=== PATIENT | female | born 1990 | race Caucasian/White ===

== ENCOUNTER 2019-12-01 12:24 | Emergency (ER) | payer BC ==
[2019-12-01] MEDS ORDERED: Sodium Chloride 0.9% 10 ML Syringe FLUSH PRN (12:32)
[2019-12-01] MEDS ORDERED: Sodium Chloride 0.9% 1,000 ML IV ONE (12:54)
[2019-12-01] MEDS ORDERED: Metoclopramide 10 MG/2 ML SDV IVPUSH ONE (12:54)
--- NOTE | 2019-12-01 13:06 | EDM.PDOC ---
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 Patient states she is 17 weeks , she is a G4, with a miscarriage. The patient's [id number] states that she has been having issues with dizziness on and off, for a little bit now, but yesterday it was quite worse and she went to the [facility], she states that they were given a liter of fluids, and had some laboratory evaluation taken and then she was sent home with a diagnosis of vertigo. Patient states that she felt better last night, had some food and was able to drink something, she woke up this morning around 6 AM and the dizziness was exquisitely worse again. Patient relates this to having her head on a toothpick and everything is spinning around her. She states that it the dizziness is so bad, that she has to keep her eyes closed as when she opens her eyes she feels instant nausea, dizziness, and wants to vomit. She did have quite a hard time getting out of the car, and ambulating with little difficulty. Patient notes that the is going well, except for this dizziness. Patient did have some vomiting today, and dry heaving as well. Patient is unable to stand without assistance. The heart rate is found to be at 150 bpm. Patient denies any fever/chills, cough/shortness of breath, or any other sick-like symptoms. - Related Data Allergies Allergy/AdvReac Type Severity Reaction Status Date / Time No Known Allergies Allergy Verified 12/01/19 12:39 Home Meds: Home Meds Meclizine [Antivert] 12.5 mg PO Q6H PRN #40 tab 12/01/19 [Rx] Metoclopramide [Reglan] 1 mg PO QID PRN #28 cup 12/01/19 [Rx] Vit 75/Iron/Folic/Om3 [One A Day Dha Pack] 1 tab PO DAILY 12/01/19 [History] predniSONE See Taper PO ASDIRECTED #16 tab 12/01/19 [Rx] Past Medical History - Past Surgical History Female Surgical History: Reports: Section, D&C Social & Family History - Tobacco Use Smoking Status *Q: Never Smoker - Caffeine Use Caffeine Use: Reports: Coffee - Recreational Drug Use Recreational Drug Use: No ED ROS GENERAL - Review of Systems Review Of Systems: Comprehensive ROS is negative, except as noted in HPI. ED EXAM, DIZZINESS - Physical Exam Exam: See Below Exam Limited By: No Limitations General Appearance: Alert, WD/WN, Other (pt is laying on her right side, and has eyes closed, states that when she opens them, she has sudden extreme dizziness) Eye Exam: Right Eye: Nystagmus (several tics of rightward nystagmus is noted), Bilateral Eye: EOMI, PERRL Nystagmus: worsens with head to R, reproducible Ears: Normal External Exam, Normal Canal, Hearing Grossly Normal, Normal TMs Nose: Normal Inspection Throat/Mouth: Normal Inspection, Normal Lips, Normal Teeth, Normal Gums, Normal Oropharynx, Normal Voice, No Airway Compromise Head Exam: Atraumatic, Normocephalic Vertigo: worsens with head to R Neck: Normal Inspection, Supple, Non-Tender, Full Range of Motion Respiratory/Chest: No Respiratory Distress, Lungs Clear, Normal Breath Sounds, No Accessory Muscle Use, Chest Non-Tender Cardiovascular: Normal Peripheral Pulses, Regular Rate, Rhythm, No Murmur GI/Abdominal: Normal Bowel Sounds, Soft, Non-Tender, No Distention, No Mass Neurological: Alert, Normal Mood/Affect, Normal Dorsiflexion, Normal Plantar Flexion, Oriented x 3 Extremities: Normal Inspection, Normal Range of Motion, Normal Capillary Refill Psychiatric: Normal Affect, Normal Mood Skin Exam: Warm, Dry, Intact, Normal Color, No Rash Course - Vital Signs Last Recorded V/S: Last Vital Signs Temp 97.0 F 12/01/19 12:34 Pulse 92 12/01/19 12:34 Resp 20 12/01/19 12:34 BP 138/72 12/01/19 12:34 Pulse Ox 98 12/01/19 12:34 - Orders/Labs/Meds Orders: Active Orders 24 hr Category Date Time Status Peripheral IV Care [RC] . DIRECTED Care 12/01/19 12:32 Ordered Consult to Physical Therapy [PT Evaluation and Cons 12/01/19 14:54 Ordered Treatment] [CONS] Routine Sodium Chloride 0.9% [Saline Flush] Med 12/01/19 12:32 Ordered 10 ml FLUSH ASDIRECTED PRN Peripheral IV Insertion Adult [OM.PC] Routine Oth 12/01/19 12:32 Ordered Medication Orders Sodium Chloride (Saline Flush) 10 ml FLUSH ASDIRECTED PRN PRN Reason: Keep Vein Open Last Admin: 12/01/19 13:33 Dose: 10 ml Documented by: MANOHAR Labs: Laboratory Tests 12/01/19 12/01/19 Range/Units 13:26 13:26 WBC 12.17 H (3.98-10.04) K/mm3 RBC 4.76 (3.98-5.22) M/mm3 Hgb 14.7 D (11.2-15.7) gm/dl Hct 42.0 (34.1-44.9) % MCV 88.2 (79.4-94.8) fl MCH 30.9 (25.6-32.2) pg MCHC 35.0 (32.2-35.5) g/dl RDW Std Deviation 41.0 (36.4-46.3) fL Plt Count 202 (182-369) K/mm3 MPV 8.8 L (9.4-12.3) fl Neut % (Auto) 89.9 H (34.0-71.1) % Lymph % (Auto) 7.4 L (19.3-51.7) % [place] % (Auto) 2.4 L (4.7-12.5) % Eos % (Auto) 0 L (0.7-5.8) Baso % (Auto) 0.1 (0.1-1.2) % Neut # (Auto) 10.94 H (1.56-6.13) K/mm3 Lymph # (Auto) 0.90 L (1.18-3.74) K/mm3 [place] # (Auto) 0.29 (0.24-0.36) K/mm3 Eos # (Auto) 0.00 L (0.04-0.36) K/mm3 Baso # (Auto) 0.01 (0.01-0.08) K/mm3 Manual Slide Review Abnormal smear Sodium 136 (136-145) mEq/L Potassium 3.7 (3.5-5.1) mEq/L Chloride 103 (98-107) mEq/L Carbon Dioxide 23 (21-32) mEq/L Anion Gap 13.7 (5-15) BUN 9 (7-18) mg/dL Creatinine 0.7 (0.55-1.02) mg/dL Est Cr Clr Drug Dosing 111.01 mL/min Estimated GFR (MDRD) > 60 (>60) mL/min BUN/Creatinine Ratio 12.9 L (14-18) Glucose 86 (74-106) mg/dL Calcium 9.1 (8.5-10.1) mg/dL Magnesium 1.7 L (1.8-2.4) mg/dl Total Bilirubin 0.3 (0.2-1.0) mg/dL AST 20 (15-37) U/L ALT 30 (14-59) U/L Alkaline Phosphatase 54 (46-116) U/L Total Protein 7.2 (6.4-8.2) g/dl Albumin 3.3 L (3.4-5.0) g/dl Globulin 3.9 gm/dL Albumin/Globulin Ratio 0.9 L (1-2) Meds: Medications Generic Name Dose Route Start Last Admin Trade Name Freq PRN Reason Stop Dose Admin Sodium Chloride 10 ml 12/01/19 12:32 12/01/19 13:33 Saline Flush FLUSH 10 ml ASDIRECTED PRN Administration Keep Vein Open Discontinued Medications Generic Name Dose Route Start Last Admin Trade Name Freq PRN Reason Stop Dose Admin Sodium Chloride 1,000 mls @ 999 mls/hr 12/01/19 12:54 12/01/19 13:32 Normal Saline IV 12/01/19 13:54 999 mls/hr ONETIME ONE Administration Meclizine HCl 25 mg 12/01/19 12:55 12/01/19 14:33 Antivert PO 12/01/19 12:56 25 mg ONETIME ONE Administration Metoclopramide HCl 10 mg 12/01/19 12:54 12/01/19 13:32 Reglan IVPUSH 12/01/19 12:55 10 mg ONETIME ONE Administration Prednisone 60 mg 12/01/19 15:47 12/01/19 16:02 Prednisone PO 12/01/19 15:48 60 mg ONETIME ONE Administration - Re-Assessments/Exams Free Text/Narrative Re-Assessment/Exam: 12/01/19 13:08 Patient presents to the ED for the evaluation of her extreme dizziness/vertigo. Patient will have IV be placed, some fluids be given along with 10mg of Reglan, 25 mg of meclizine. I did talk with radiology regarding head imaging, and they would be able to provide her with a brain MRI and MRA without contrast with Dr. Munoz's permission today. I do believe this would be beneficial, and ruling out any abnormality. Have ordered these, and basic labs for management. 12/01/19 14:51 The patient's MRI and MRA of her brain without contrast have been done, and demonstrates no acute abnormalities. Patient was reassessed at bedside, and states she is still quite dizzy, she tried sitting up in the bed, and still states that her head feels like it is on a toothpick. Will try to call PT to see if they can come and evaluate for treatment. Departure - Departure Time of Disposition: 15:53 Disposition: Home, Self-Care 01 Condition: Good Clinical Impression: Acute vestibular neuritis Qualifiers: Laterality: left Qualified Code(s): H81.22 - Vestibular neuronitis, left ear - Discharge Information *PRESCRIPTION DRUG MONITORING PROGRAM REVIEWED*: No *COPY OF PRESCRIPTION DRUG MONITORING REPORT IN PATIENT PAOLA: No Prescriptions: Meclizine [Antivert] 12.5 mg PO Q6H PRN #40 tab PRN Reason: Dizziness predniSONE See Taper PO ASDIRECTED #16 tab Metoclopramide [Reglan] 1 mg PO QID PRN #28 cup PRN Reason: Nausea Instructions: Dizziness, [id number] Referrals: Mando Arenas MD [Primary Care Provider] - Forms: ED Department Discharge, ED Return to Work/School Form Additional Instructions: You were evaluated in the ER today regarding your ongoing dizziness. You were given some fluids, IV medications, had MRI and MRA done of your brain, and did have some labs taken as well. All of the studies were within normal limits. In the IV fluids and IV medications seem to help your symptoms a little bit. Physical therapy was in to evaluate you, and diagnosed you with vestibular neuritis, which is an inflammation of the inner ear canals. This can take up to 2 to 4 weeks to get better. Treatment of this however is a steroid taper. I did consult with your DIRECTOR OF ARCHITECTURE provider, Dr. Arenas, and he does agree that the benefits outweigh the risks at this point in your . You have been provided with a prescription for prednisone, Day 1 (first 60 mg dose) was given in the ER. Please follow this tapering dose. Days 1-5: 60mg Day 6: 40mg Day 7: 30mg Day 8: 20mg Day 9: 10mg You have also been provided with a prescription for meclizine, please take 12.5 mg to 25 mg every 6 hours as needed for further vertigo/dizziness symptoms. You were given a prescription for your nausea as well , this is Reglan please take 10mg, 1 cup QID PRN for nausea. It is highly recommended to keep yourself well-hydrated, try to go home and rest in a dark quiet room without a lot of stimuli, this should get better soon. Dr. Arenas would like you to check in with him, by the end of the week or on Friday to see how you are feeling, and keep your previous appointment as already scheduled. It is recommended that while you are experiencing this extreme dizziness, you try not to drive, or take long car rides. You will be released from work for a week as well, to help try to make the symptoms better. If symptoms do not seem to be getting better after 2 to 4 weeks, you may want to seek out audiology for further testing and evaluation. Please return to the ER at any time if your symptoms change or worsen. Sepsis Event Note (ED) - Evaluation Sepsis Screening Result: No Definite Risk - Focused Exam Vital Signs: Vital Signs Temp Pulse Resp BP Pulse Ox 12/01/19 12:34 97.0 F 92 20 138/72 98 - My Orders Last 24 Hours: My Active Orders 12/01/19 12:32 Peripheral IV Care [RC] . DIRECTED Sodium Chloride 0.9% [Saline Flush] 10 ml FLUSH ASDIRECTED PRN Peripheral IV Insertion Adult [OM.PC] Routine 12/01/19 14:54 Consult to Physical Therapy [PT Evaluation and Treatment] [CONS] Routine - Assessment/Plan Last 24 Hours: My Active Orders 12/01/19 12:32 Peripheral IV Care [RC] . DIRECTED Sodium Chloride 0.9% [Saline Flush] 10 ml FLUSH ASDIRECTED PRN Peripheral IV Insertion Adult [OM.PC] Routine 12/01/19 14:54 Consult to Physical Therapy [PT Evaluation and Treatment] [CONS] Routine
--- NOTE | 2019-12-01 14:39 | MR ---
MRI brain Technique: T1 sagittal; T2, T2 FLAIR, T1 and diffusion axial; T1 and T2 gradient echo coronal; thin T2 gradient echo axial images through the internal auditory canals were obtained. Findings: Ventricles along with basal cisterns and sulci over the convexities appear within normal limits for the patient's age. Normal signal void is seen within the major cerebral arteries within skull base. No abnormal signal is seen within the brain parenchyma. No midline shift or mass-effect is seen. Visualized paranasal sinuses and mastoid sinuses show nothing acute. No acute diffusion abnormalities are seen. Contents of the internal auditory canals appear unremarkable. No cerebellopontine angle cistern mass is seen. Impression: 1. No abnormality is appreciated on MRI study of the brain. Diagnostic code #1 This report was dictated in MDT
--- NOTE | 2019-12-01 14:39 | MR ---
MR angiogram of brain Technique: [id number] MR angiogram study was obtained centered to the [place]. Multiple MIP images were obtained. Findings: Distal internal carotid arteries as well as distal vertebral arteries are patent. Basilar artery appears to be patent. Posterior cerebral arteries are patent. Both middle and anterior cerebral arteries are patent. No focal stenosis or occlusion is seen. No discrete aneurysm is appreciated. Impression: 1. No abnormality is appreciated on MR angiogram study of the brain which is centered to the [place]. Diagnostic code #1 This report was dictated in MDT
[2019-12-01] MEDS ORDERED: predniSONE 20 MG Tab PO ONE (15:47)
== END 2019-12-01 16:40 | disposition home or self-care (01) ==
LOC: JD.ED 12:24
DX: O99.89 Other specified diseases and conditions complicating pregnancy, childbirth and the puerperium (principal); H81.22 Vestibular neuronitis, left ear; Z3A.17 17 weeks gestation of pregnancy
CPT/HCPCS: 36415; 70544; 70551; 80053; 83735; 85025; 96361; 96374; 99284; A9270; J2765; J7030; J7512; 99283

== ENCOUNTER 2020-04-20 05:34 | Inpatient (IN) | payer BC ==
--- NOTE | 2020-04-18 13:34 | PCM.LDHP ---
L&D History of Present Illness - General Date of Service: 04/17/20 Admit Problem/Dx: Admission Diagnosis/Problem Admission Diagnosis/Problem section Source of Information: Patient History Limitations: Reports: No Limitations - History of Present Illness Introduction:: Mell Serrano is a 29-year-old -0-1-2 female at 36 weeks 4 days (YOSEF 05/11/2020) at her appointment on 04/17/2020 who will be 37 weeks 0 days on day of surgery on 04/20/2020. While she was seen in the clinic on 04/17/2020 she was noted to have mild range blood pressures that have persisted from a previous appointment several weeks prior. She had lab work done that showed that this is most likely due to gestational hypertension. She was not having any symptoms or signs of severe features of preeclampsia. She denied any headaches, vision changes or epigastric pain. Her was otherwise going well. She was feeling infant move without difficulty. She denied any significant contractions or cramping. Denied any leaking of fluid or vaginal bleeding. Patient recommended for her to undergo repeat section due to suspected gestational hypertension. Associated Symptoms: Denies: vaginal bleeding, vaginal discharge, vaginal fluid Present Illness Comments:: Mell Serrano is a 29-year-old -0-1-2 female at 36 weeks 4 days (YOSEF 05/11/2020) at her appointment on 04/17/2020 who will be 37 weeks 0 days on day of surgery on 04/20/2020. She has had routine care with Dr. Arenas and myself, Dr. Huffman, starting at 11 weeks gestational age. She had a normal anatomy ultrasound done at 19 weeks gestational age. She received influenza vaccine on 03/16/2020 and Tdap on 02/23/2020. She had an elevated 1 hour glucose tolerance test with a normal 3-hour glucose tolerance test. She did have mild range blood pressure at her visit on 03/27/2020 when she was 33 weeks 4 days with a blood pressure of 130/90 and then a repeat mild range blood pressure at her visit on 04/17/2020 with a blood pressure of 148/90. Her blood work and other labs were within normal limits. is complicated by: * History of section x2 and desires repeat section * Gestational hypertension diagnosed at her visit on 04/17/2020 with persistent elevation of mild range blood pressure and no severe features of preeclampsia. No abnormalities on blood work or urine testing * Elevated 1 hour glucose tolerance test with a value of 132 and normal 3-hour glucose tolerance test. FISCAL SPECIALIST history: G1: SAB at early gestational age uncertain date G2: 06/05/2010, section for nonreassuring heart tones, 39 weeks gestational age, 6 pounds 7 ounces, male , epidural, no other compli cations G3: 05/03/2013, repeat section for history of section, 39 weeks gestational age, 7 pounds 10 ounces, female , spinal, no other complications labs Blood type: A+ Antibody screen: Negative First trimester hematocrit/hemoglobin: 39.2%/13.1 on 10/25/2019 Platelets: 221 on 10/25/2019 Pap smear: Negative on 10/25/2019 Urine culture: Mixed javad suggestive of contamination Rubella status: Immune Hepatitis B surface antigen: Negative RPR: Negative HIV: Negative Gonorrhea: Negative Chlamydia: Negative Anatomy ultrasound: Normal anatomy ultrasound, posterior placenta, no previa, 17th percentile One hour glucose tolerance test: 132 Second trimester hematocrit/hemoglobin: 36.4%/12.2 on 02/23/2020 Platelets: 193 on 02/23/2020 3-hour glucose tolerance test: Fasting 80, 1 hour 133, 2-hour 80, 3-hour 89 GBS status: Positive on 04/17/2020 - Related Data Allergies/Adverse Reactions: Allergies Allergy/AdvReac Type Severity Reaction Status Date / Time No Known Allergies Allergy Verified 04/18/20 10:53 Home Medications: Home Meds Vit 75/Iron/Folic/Om3 [One A Day Dha Pack] 1 tab PO DAILY 12/01/19 [History] Past Medical History Genitourinary History: Reports: Renal Calculus (history of) FISCAL SPECIALIST History: Reports: , Spontaneous : 4 Para: 2 Other OB/BYN History: 1 SAB, 2 C/S- 2009,2012 - Past Surgical History Female Surgical History: Reports: Section (x2), D&C Social & Family History - Family History Family Medical History: Noncontributory - Tobacco Use Tobacco Use Status *Q: Never Tobacco User Second Hand Smoke Exposure: No - Tobacco Core Measures Tobacco Use/Smoking Within Last 30 Days: No Smokeless Tobacco Use in Last 30 Days: No - Caffeine Use Caffeine Use: Reports: None - Recreational Drug Use Recreational Drug Use: No - Living Situation & Occupation Living situation: Reports: , with Spouse, with Family Occupation: Employed H&P Review of Systems - Review of Systems: Review Of Systems: See Below General: Denies: Fever, Chills, Malaise, Weakness, Fatigue HEENT: Denies: Headaches, Rhinitis, Post Nasal Drip, Sinus Congestion, Sore Throat, Visual Changes Pulmonary: Denies: Shortness of Breath, Wheezing, Pleuritic Chest Pain, Cough Cardiovascular: Denies: Chest Pain, Palpitations, Dyspnea on Exertion, Orthopnea Gastrointestinal: Reports: Constipation (mild). Denies: Abdominal Pain, Diarrhea, Nausea, Vomiting Genitourinary: Denies: Dysuria, Frequency, Burning, Pain, Urgency Musculoskeletal: Reports: Back Pain (and hip pain of ) Skin: Denies: Rash, Lesions Psychiatric: Denies: Depression, Anxiety L&D Exam - Exam Exam: See Below - Vital Signs Vital Signs: BP: 148/90 Weight: 94.347 kg - OB Specific Fundal Height In cm: 37 Movement: Active Heart Tones: Present Heart Tones per Min: 132 - Garnica Score Garnica Score Cervix Position: Posterior Garnica Score Consistency: Medium Garnica Score Effacement: 0-30% (30%) Garnica Score Dilation: Closed Garnica Score Infant's Station: -3 (-4) Garnica Score Total: 1 - Exam General: Alert, Oriented HEENT: Conjunctiva Clear, EOMI Neck: Supple, Trachea Midline Lungs: Clear to Auscultation, Normal Respiratory Effort Cardiovascular: Regular Rate, Regular Rhythm GI/Abdominal Exam: Soft, Non-Tender, No Distention, Other (Gravid). No: Guarding, Rigid, Rebound Genitourinary: Normal external exam Extremities: Normal Inspection, Pedal Edema (+1 in bilateral lower extremities to midshins) Skin: Warm, Dry, Intact Psychiatric: Normal Affect, Normal Mood - Problem List (1) 37 weeks gestation of SNOMED Code(s): 14959895 ICD Code: Z3A.37 - 37 WEEKS GESTATION OF Status: Acute (2) Gestational hypertension SNOMED Code(s): 561563773 ICD Code: O13.9 - GESTATIONAL HTN W/O SIGNIFICANT PROTEINURIA, UNSP TRIMESTER Status: Acute (3) History of delivery affecting SNOMED Code(s): 989384551, 144060978 ICD Code: O34.219 - MATERNAL CARE FOR UNSP TYPE SCAR FROM PREVIOUS DEL Status: Acute (4) History of delivery SNOMED Code(s): 826668513 ICD Code: Z98.891 - HISTORY OF UTERINE SCAR FROM PREVIOUS SURGERY Status: Acute Problem List Initiated/Reviewed/Updated: Yes Assessment/Plan Comment:: Mell Serrano (Liz) is a 29-year-old -0-1-2 who will be 37 weeks 0 days (YOSEF 05/11/2020) on day of surgery on 04/20/2020 who presents for repeat section in the setting of gestational hypertension with complicated by history of section, gestational hypertension and elevated 1 hour glucose tolerance test with normal 3-hour glucose tolerance test Admit to inpatient after section NST prior to section Place IV and have Lactated Ringer's at 125 ml/hr SCDs for DVT prophylaxis Nothing by mouth Activity as tolerated Plan for spinal injection for anesthesia COVID-19 swab, CBC, RPR and type and screen prior to surgery Plans to breast-feed after delivery Plan for Ancef 2 g IV for antibiotic prophylaxis prior to surgery Benny Huffman M.D. 1:53 PM 04/18/2020
[2020-04-20] MEDS ORDERED: ceFAZolin 2 GM in Premix Bag 1 BAG IV ONE (06:00)
[2020-04-20] MEDS ORDERED: Metoclopramide 10 MG/2 ML SDV IVPUSH ONE (06:00)
[2020-04-20] MEDS ORDERED: Citric Acid/Sodium Citrate Solution 30 ML Cup PO ONE (06:00)
[2020-04-20] MEDS ORDERED: Sodium Chloride 0.9% 10 ML Syringe FLUSH PRN (06:00)
[2020-04-20] MEDS ORDERED: Lactated Ringers 1,000 ML IV SCH (06:00)
[2020-04-20] MEDS ORDERED: Oxytocin/Lactated Ringers 10 UNIT/1,000 ML BAG IV SCH ×2 (06:00→10:22)
[2020-04-20] MEDS ORDERED: Bupivacaine 0.5% 30 ML SDV ONE (06:39)
[2020-04-20] MEDS ORDERED: Phenylephrine 1% 10 MG/ML SDV ONE (06:44)
[2020-04-20] MEDS ORDERED: ceFAZolin 1 GM Vial ONE (06:44)
[2020-04-20] MEDS ORDERED: Oxytocin 10 Units/1 ML SDV ONE ×2 (06:44→07:54)
[2020-04-20] MEDS ORDERED: Ketorolac 30 MG/ML SDV ONE (06:44)
[2020-04-20] MEDS ORDERED: Morphine PF 10 MG/10 ML SDV ONE (06:44)
[2020-04-20] MEDS ORDERED: Lactated Ringers 1,000 ML ONE (06:49)
[2020-04-20] MEDS ORDERED: Metoclopramide 10 MG/2 ML SDV ONE (06:49)
[2020-04-20] MEDS ORDERED: Citric Acid/Sodium Citrate Solution 30 ML Cup ONE (06:50)
--- NOTE | 2020-04-20 08:22 | PCM.PREANE ---
Preanesthetic Assessment - Procedure Proposed Procedure: C section - Anesthesia/Transfusion/Family Hx Anesthesia History: Prior Anesthesia Without Reaction Family History of Anesthesia Reaction: No Transfusion History: No Prior Transfusion(s) - Review of Systems General: No Symptoms Pulmonary: No Symptoms Cardiovascular: No Symptoms Gastrointestinal: No Symptoms Neurological: No Symptoms Other: Reports: None - Physical Assessment NPO Status Date: 04/19/20 NPO Status Time: 00:00 Vital Signs: Last Vital Signs Temp 36.9 C 04/20/20 05:55 Pulse 93 04/20/20 05:55 Resp 14 04/20/20 05:55 BP 134/84 04/20/20 05:55 Pulse Ox 100 04/20/20 05:55 Height: 1.68 m Weight: 93.077 kg ASA Class: 2 Mental Status: Alert & Oriented x3 Airway Class: Mallampati = 1 Dentition: Reports: Normal Dentition Thyro-Mental Finger Breadths: 3 Mouth Opening Finger Breadths: 3 ROM/Head Extension: Full Lungs: Clear to Auscultation, Normal Respiratory Effort Cardiovascular: Regular Rate, Regular Rhythm - Lab Values: Laboratory Last Values WBC 11.22 K/mm3 (3.98-10.04) H 04/20/20 05:43 RBC 4.45 M/mm3 (3.98-5.22) 04/20/20 05:43 Hgb 13.8 gm/dl (11.2-15.7) 04/20/20 05:43 Hct 41.1 % (34.1-44.9) 04/20/20 05:43 MCV 92.4 fl (79.4-94.8) 04/20/20 05:43 MCH 31.0 pg (25.6-32.2) 04/20/20 05:43 MCHC 33.6 g/dl (32.2-35.5) 04/20/20 05:43 RDW Std Deviation 41.9 fL (36.4-46.3) 04/20/20 05:43 Plt Count 195 K/mm3 (182-369) 04/20/20 05:43 MPV 9.3 fl (9.4-12.3) L 04/20/20 05:43 Neut % (Auto) 75.6 % (34.0-71.1) H 04/20/20 05:43 Lymph % (Auto) 17.2 % (19.3-51.7) L 04/20/20 05:43 [place] % (Auto) 5.7 % (4.7-12.5) 04/20/20 05:43 Eos % (Auto) 0.7 (0.7-5.8) 04/20/20 05:43 Baso % (Auto) 0.1 % (0.1-1.2) 04/20/20 05:43 Neut # (Auto) 8.48 K/mm3 (1.56-6.13) H 04/20/20 05:43 Lymph # (Auto) 1.93 K/mm3 (1.18-3.74) 04/20/20 05:43 [place] # (Auto) 0.64 K/mm3 (0.24-0.36) H 04/20/20 05:43 Eos # (Auto) 0.08 K/mm3 (0.04-0.36) 04/20/20 05:43 Baso # (Auto) 0.01 K/mm3 (0.01-0.08) 04/20/20 05:43 SARS-CoV-2 RNA (CHRISTY) Negative (NEGATIVE) 04/20/20 05:50 Blood Type A POSITIVE 04/20/20 05:43 Gel Antibody Screen Negative 04/20/20 05:43 - Allergies Allergies/Adverse Reactions: Allergies Allergy/AdvReac Type Severity Reaction Status Date / Time No Known Allergies Allergy Verified 04/20/20 06:26 - Anesthesia Plan Pre-Op Medication Ordered: None - Acknowledgements Anesthesia Type Planned: Spinal Pt an Appropriate Candidate for the Planned Anesthesia: Yes Alternatives and Risks of Anesthesia Discussed w Pt/Guardian: Yes Pt/Guardian Understands and Agrees with Anesthesia Plan: Yes PreAnesthesia Questionnaire Gastrointestinal History: Reports: GERD Genitourinary History: Reports: Renal Calculus 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: , 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 Other OB/BYN History: 1 SAB, 2 C/S- - Past Surgical History Female Surgical History: Reports: Section, D&C - SUBSTANCE USE Tobacco Use Status *Q: Never Tobacco User Tobacco Use Within Last Twelve Months: No Second Hand Smoke Exposure: No Recreational Drug Use History: No - HOME MEDS Home Medications: Home Meds Vit 75/Iron/Folic/Om3 [One A Day Dha Pack] 1 tab PO DAILY 12/01/19 [History] - CURRENT (IN HOUSE) MEDS Current Meds: Current Medications Lactated Ringer's (Ringers, Lactated) 1,000 mls @ 125 mls/hr IV ASDIRECTED [facility] Last Admin: 04/20/20 06:08 Dose: 125 mls/hr Documented by: Oxytocin/Lactated Ringer's (Pitocin In Lr 10 Units/1,000 Ml) 10 unit in 1,000 mls @ 100 mls/hr IV ASDIRECTED [facility] Sodium Chloride (Saline Flush) 10 ml FLUSH ASDIRECTED PRN PRN Reason: Keep Vein Open Discontinued Medications Bupivacaine HCl (Marcaine 0.5%) Confirm Administered Dose 30 ml .ROUTE .STK-MED ONE Stop: 04/20/20 06:40 Cefazolin Sodium (Ancef) Confirm Administered Dose 2 gm .ROUTE .STK-MED ONE Stop: 04/20/20 06:45 Citric Acid/Sodium Citrate (Bicitra Solution) 30 ml PO ONETIME ONE Stop: 04/20/20 06:01 Last Admin: 04/20/20 06:52 Dose: 30 ml Documented by: Citric Acid/Sodium Citrate (Bicitra Solution) Confirm Administered Dose 30 ml .ROUTE .STK-MED ONE Stop: 04/20/20 06:51 Cefazolin Sodium/Dextrose 2 gm (/ Premix) 50 mls @ 100 mls/hr IV ONETIME ONE Stop: 04/20/20 06:29 Lactated Ringer's (Ringers, Lactated) Confirm Administered Dose 1,000 mls @ as directed .ROUTE .STK-MED ONE Stop: 04/20/20 06:50 Ketorolac Tromethamine (Toradol) Confirm Administered Dose 30 mg .ROUTE .STK-MED ONE Stop: 04/20/20 06:45 Metoclopramide HCl (Reglan) 10 mg IVPUSH ONETIME ONE Stop: 04/20/20 06:01 Last Admin: 04/20/20 06:52 Dose: 10 mg Documented by: Metoclopramide HCl (Reglan) Confirm Administered Dose 10 mg .ROUTE .STK-MED ONE Stop: 04/20/20 06:50 Morphine Sulfate (Duramorph Pf) Confirm Administered Dose 10 mg .ROUTE .STK-MED ONE Stop: 04/20/20 06:45 Oxytocin (Pitocin) Confirm Administered Dose 10 unit .ROUTE .[facility]K-MED ONE Stop: 04/20/20 06:45 Oxytocin (Pitocin) [facility] Stop: 04/20/20 07:55 Phenylephrine HCl (Sushil-Synephrine) Confirm Administered Dose 10 mg .ROUTE .[facility] ONE Stop: 04/20/20 06:45
--- NOTE | 2020-04-20 08:23 | PCM.POSTAN ---
POST ANESTHESIA ASSESSMENT - MENTAL STATUS Mental Status: Alert, Oriented - VITAL SIGNS Vital Signs: Last Vital Signs Temp 36.9 C 04/20/20 05:55 Pulse 93 04/20/20 05:55 Resp 14 04/20/20 05:55 BP 134/84 04/20/20 05:55 Pulse Ox 100 04/20/20 05:55 - RESPIRATORY Respiratory Status: Respiratory Rate WNL, Airway Patent, O2 Saturation Stable - CARDIOVASCULAR CV Status: Pulse Rate WNL, Blood Pressure Stable - GASTROINTESTINAL GI Status: No Symptoms - PAIN Pain Score: 0 - POST OP HYDRATION Hydration Status: Adequate & Stable - OBSERVATIONS Free Text/Narrative:: no anesthesia complications noted
--- NOTE | 2020-04-20 08:48 | PCM.OPNOTE ---
- General Post-Op/Procedure Note Date of Surgery/Procedure: 04/20/20 Operative Procedure(s): Repeat section Findings: Live male delivered in vertex presentation on 04/20/2020 at 07:32. Apgars of 8 and 9. weight 2610 g (5 pounds 12.1 ounces). Grossly normal- appearing uterus, bilateral fallopian tubes and ovaries. Pre Op Diagnosis: 37 weeks gestational age and gestational hypertension with history of section x2 Post-Op Diagnosis: Same Anesthesia Technique: Spinal Primary Surgeon: Benny Huffman Anesthesia Provider: Joseph Colmenares Drop Tester: Satish Kramer Drop Tester: Frida Clark (PA student) Reason Drop Tester Was Necessary: Patient safety and reduction of morbidity and mortality Role of Drop Tester: Retraction for visualization Pathology: None Fluid Replacement, Intraop: 2,300 Output, Urine Amount: 225 EBL in mLs: 800 Complications: None Condition: Good Free Text/Narrative:: Procedure in Detail: The patient was seen in room #6 and the risks, benefits and complications were discussed with the patient. The patient desired to proceed with section and appropriate consents were reviewed. The patient was taken to operating room #1. A Time Out was held and the patient was identified using 2 identifiers and the procedure was confirmed. The patient was given spinal anesthesia and was placed in dorsal supine position with leftward tilt. She was given 2 g Ancef for antibiotic prophylaxis. A Dietrich catheter was inserted without difficulty. The patient was prepped and draped in the usual sterile manner. The abdominal skin was tested and the spinal anesthesia was found to be adequate. The skin was injected with 0.5% m arcaine for local anesthesia. A Pfannenstiel skin incision was made and carried down through the subcutaneous tissue to the fascia with the scapel. The fascia was nicked in the midline using a scalpel and the fascial incision was extended transversely with Richardson scissors. The inferior aspect of the fascia was grasped with Kenton clamps and tented upwards. The fascia was from the under lying rectus muscle bluntly and sharply with Richardson scissors. Attention was then turned to the superior aspect of the fascia and was grasped using Kenton clamps and tented upwards. The underlying rectus muscle was dissected off bluntly and sharply with Richardson scissors. The peritoneum was identified and entered bluntly. The utero-vesical peritoneal reflection was identified and the peritoneum was i ncised with [place]um scissors and transversely extended. The bladder blade was inserted and the lower uterine segment was identified. A low transverse uterine incision was made sharply with a scalpel and extended laterally bluntly. The infant's head was brought to the uterine incision, the bladder blade was removed and the was delivered atraumatically. On 04/20/2020 a live male infant was delivered in vertex position at 07:32, wt of 2610 grams, 5 pounds and 12.1 ounces. APGARS were 8 & 9. The nose and mouth were suctioned with bulb suction. The cord was doubly clamped and cut by the father the over the top of the abdominal drape. The was transferred to the awaiting nurse. The placenta was removed intact and appeared normal with a three vessel cord. The uterus was exteriorized and the uterine cavity was cleaned using lap sponges. The hysterotomy was closed with a running locked suture of 0-Vicryl. A second suture of 0-Vicryl was used to imbricate the hysterotomy. The hysterotomy was hemostatic. There was an area of bleeding above the hysterotomy that was attempted to be made hemostatic with Bovie cautery but this was unsuccessful. A fhpaob-[id number]-tzxze suture using 0 Vicryl suture was placed and there continues to be a small amount of bleeding. A second wjkser-wy-yigxr suture was placed and the area was hemostatic. The uterus, tubes and ovaries appeared overall normal. The uterus was then returned into the abdominal cavity. The hysterotomy was noted to remain hemostatic inside the abdominal cavity. The fascia was noted to be hemostatic and the fascia was then reapproximated with running sutures of 0-Vicryl. The skin was reapproximated using 4-0 Monocryl and Steri-strips were applied over the incision. Instrument, sponge, and needle counts were correct prior to the abdominal closure and at the conclusion of the case. Benny Huffman MD 8:45 AM 04/20/2020
[2020-04-20] MEDS ORDERED: Magnesium Hydroxide 400 MG/5 ML Susp 30 ML Cup PO PRN (10:22)
[2020-04-20] MEDS ORDERED: Acetaminophen/oxyCODONE 325-5 MG Tab PO PRN (10:22)
[2020-04-20] MEDS ORDERED: ePHEDrine 50 MG/ML SDV IVPUSH PRN (10:22)
[2020-04-20] MEDS ORDERED: Dextrose 5%-Lactated Ringers 1,000 ML IV SCH (10:22)
[2020-04-20] MEDS ORDERED: Naloxone 0.4 MG/ML SDV IVPUSH PRN (10:22)
[2020-04-20] MEDS ORDERED: diphenhydrAMINE 50 MG/ML SDV IVPUSH PRN (10:22)
[2020-04-20] MEDS: Docusate Sodium 100 MG Cap PO SCH ×2 (11:08→21:19)
[2020-04-20] MEDS: Prenatal Multivitamin with Calcium/Folic Acid/Iron Tab PO SCH (11:08)
[2020-04-20] MEDS: Ketorolac 30 MG/ML SDV IVPUSH SCH ×2 (14:53→21:13)
[2020-04-21] MEDS: Ketorolac 30 MG/ML SDV IVPUSH SCH (02:11)
[2020-04-21] MEDS: Acetaminophen/oxyCODONE 325-5 MG Tab PO PRN ×2 (04:14→10:07)
[2020-04-21] MEDS: Ibuprofen 600 MG Tab PO PRN ×3 (07:42→20:19)
[2020-04-21] MEDS: Docusate Sodium 100 MG Cap PO SCH ×2 (08:58→20:20)
[2020-04-21] MEDS: Prenatal Multivitamin with Calcium/Folic Acid/Iron Tab PO SCH (08:58)
--- NOTE | 2020-04-21 10:00 | PCM48HPAN ---
Post Anesthesia Note - EVALUATION WITHIN 48HRS OF ANESTHETIC Vital Signs in Normal Range: Yes Patient Participated in Evaluation: Yes Respiratory Function Stable: Yes Airway Patent: Yes Cardiovascular Function Stable: Yes Hydration Status Stable: Yes Pain Control Satisfactory: Yes Nausea and Vomiting Control Satisfactory: Yes Mental Status Recovered: Yes Vital Signs: Last Vital Signs Temp 36.9 C 04/21/20 08:56 Pulse 80 04/21/20 08:56 Resp 16 04/21/20 08:56 BP 118/74 04/21/20 08:56 Pulse Ox 97 04/21/20 08:56 - COMMENTS/OBSERVATIONS Free Text/Narrative:: no anesthesia complications noted
--- NOTE | 2020-04-21 15:28 | PCM.SN.2 ---
- Free Text/Narrative Note: Post Operative Progress Note POD #1 Subjective: Doing well overall. Ambulating slowly without difficulty but is having increased amounts of pain when she tries to stand up clearly. She reports that she tries to hunch over a little bit to protect her abdominal pain from getting worse. She reports that it has been getting better since yesterday. Lochia minimal. Urinating without difficulty. Passing flatus but has not had a bowel movement. Tolerating regular diet without nausea or vomiting. Pain controlled with oral medications but she is trying to avoid taking narcotic pain medications due to some of the side effects they can cause for her including a foggy, lightheaded feeling. Breast-feeding with minimal difficulty. Objective: Vitals: Vital Signs - 24 hr 04/20/20 04/20/20 04/20/20 15:42 15:43 18:00 Temperature 37.2 C Pulse, 81 84 Peripheral Respiratory 14 15 Rate Blood Pressure 123/82 O2 Sat by Pulse 99 98 98 Oximetry 04/20/20 21:06 Temperature 36.6 C Pulse, 91 Peripheral Respiratory 16 Rate Blood Pressure 118/64 O2 Sat by Pulse 97 Oximetry 04/20/20 23:35 Temperature 36.7 C Pulse, 92 Peripheral Respiratory 16 Rate Blood Pressure 117/73 O2 Sat by Pulse 97 Oximetry 04/21/20 08:56 Temperature 36.9 C Pulse, 80 Peripheral Respiratory 16 Rate Blood Pressure 118/74 O2 Sat by Pulse 97 Oximetry 04/21/20 14:48 Temperature 36.7 C Pulse, 82 Peripheral Respiratory 16 Rate Blood Pressure 122/72 O2 Sat by Pulse 97 Oximetry Physical Exam General: Alert and oriented, no acute distress Lungs: Clear to auscultation bilaterally Heart: Regular rate and rhythm Abdomen: Soft, minimal appropriate tenderness, non-distended, fundus midline, nontender and at the umbilicus Incision: Clean, dry and intact, no erythema, bleeding or drainage with Steri- Strips in place Extremities: Trace edema in bilateral lower extremities to mid shins Labs: Laboratory Results - last 24 hr 04/20/20 04/21/20 Range/Units 05:43 06:05 WBC 11.15 H (3.98-10.04) K/mm3 RBC 3.91 L (3.98-5.22) M/mm3 Hgb 11.9 (11.2-15.7) gm/dl Hct 36.1 (34.1-44.9) % MCV 92.3 (79.4-94.8) fl MCH 30.4 (25.6-32.2) pg MCHC 33.0 (32.2-35.5) g/dl RDW Std Deviation 41.6 (36.4-46.3) fL Plt Count 168 L (182-369) K/mm3 MPV 9.4 (9.4-12.3) fl Neut % (Auto) 77.9 H (34.0-71.1) % Lymph % (Auto) 14.6 L (19.3-51.7) % [place] % (Auto) 6.5 (4.7-12.5) % Eos % (Auto) 0.5 L (0.7-5.8) Baso % (Auto) 0.1 (0.1-1.2) % Neut # (Auto) 8.68 H (1.56-6.13) K/mm3 Lymph # (Auto) 1.63 (1.18-3.74) K/mm3 [place] # (Auto) 0.73 H (0.24-0.36) K/mm3 Eos # (Auto) 0.06 (0.04-0.36) K/mm3 Baso # (Auto) 0.01 (0.01-0.08) K/mm3 RPR Non-reactive (NONREACTIVE) ASSESSMENT: 29-year-old female -0-1-3 s/p repeat section POD #1 for history of section, complicated by gestational hypertension, history of section x2 and elevated 1 hour glucose tolerance test with normal 3-hour glucose test PLAN: Doing well We will plan to adjust her medications at this time to allow for her to have more control over her narcotic use. We will write for her to have ibuprofen 600 mg every 6 hours as needed for pain as well as Tylenol 650 mg every 6 hours as needed for pain. We will also write for oxycodone 5 to 10 mg every 6 hours that she can use if she is having significant pain that is not able to be controlled with the Tylenol and ibuprofen. Breast-feeding with minimal difficulty. Assist as needed Incision healing well. Continue to keep clean and dry. Lochia minimal. Continue to monitor for appropriate lochia. Continue routine post-operative care Anticipate discharge home tomorrow Benny Huffman MD 3:25 PM 04/21/2020
[2020-04-21] MEDS: oxyCODONE 5 MG Tab PO PRN ×2 (16:00→20:23)
[2020-04-21] MEDS: Acetaminophen 325 MG Tab PO PRN (17:37)
--- NOTE | 2020-04-22 00:59 | PCM.PNPP ---
- General Info Date of Service: 04/22/20 Functional Status: Reports: Pain Controlled, Tolerating Diet, Ambulating, Urinating - Review of Systems General: Reports: No Symptoms Pulmonary: Reports: No Symptoms Cardiovascular: Reports: No Symptoms Gastrointestinal: Reports: Abdominal Pain (managed better overnight ) Genitourinary: Reports: No Symptoms Musculoskeletal: Reports: No Symptoms Neurological: Reports: No Symptoms - Patient Data Vital Signs - Most Recent: Last Vital Signs Temp 36.9 C 04/21/20 22:05 Pulse 83 04/21/20 22:05 Resp 15 04/21/20 22:05 BP 140/83 04/21/20 22:05 Pulse Ox 97 04/21/20 22:05 Weight - Most Recent: 93.077 kg I&O - Last 24 Hours: Intake & Output 04/21/20 04/21/20 04/22/20 14:59 22:59 06:59 Intake Total 840 Balance 840 Lab Results - Last 24 Hours: Laboratory Results - last 24 hr 04/21/20 Range/Units 06:05 WBC 11.15 H (3.98-10.04) K/mm3 RBC 3.91 L (3.98-5.22) M/mm3 Hgb 11.9 (11.2-15.7) gm/dl Hct 36.1 (34.1-44.9) % MCV 92.3 (79.4-94.8) fl MCH 30.4 (25.6-32.2) pg MCHC 33.0 (32.2-35.5) g/dl RDW Std Deviation 41.6 (36.4-46.3) fL Plt Count 168 L (182-369) K/mm3 MPV 9.4 (9.4-12.3) fl Neut % (Auto) 77.9 H (34.0-71.1) % Lymph % (Auto) 14.6 L (19.3-51.7) % [place] % (Auto) 6.5 (4.7-12.5) % Eos % (Auto) 0.5 L (0.7-5.8) Baso % (Auto) 0.1 (0.1-1.2) % Neut # (Auto) 8.68 H (1.56-6.13) K/mm3 Lymph # (Auto) 1.63 (1.18-3.74) K/mm3 [place] # (Auto) 0.73 H (0.24-0.36) K/mm3 Eos # (Auto) 0.06 (0.04-0.36) K/mm3 Baso # (Auto) 0.01 (0.01-0.08) K/mm3 Med Orders - Current: Current Medications Acetaminophen (Tylenol) 650 mg PO Q6H PRN PRN Reason: Pain (moderate 4-6) Last Admin: 04/21/20 17:37 Dose: 650 mg Documented by: Diphenhydramine HCl (Benadryl) 25 mg IVPUSH Q6H PRN PRN Reason: Itching or Nausea Docusate Sodium (Colace) 100 mg PO BID VI Last Admin: 04/21/20 20:20 Dose: 100 mg Documented by: Ephedrine Sulfate (Ephedrine Sulfate) 5 mg IVPUSH SEECOMMENT PRN PRN Reason: Other Oxytocin/Lactated Ringer's (Pitocin In Lr 10 Units/1,000 Ml) 10 unit in 1,000 mls @ 100 mls/hr IV .CONTINUOUS VI; Protocol Ibuprofen (Motrin) 600 mg PO Q6H PRN PRN Reason: mild pain or fever Last Admin: 04/21/20 20:19 Dose: 600 mg Documented by: Magnesium Hydroxide (Milk Of Magnesia) 30 ml PO BEDTIME PRN PRN Reason: Constipation Naloxone HCl (Narcan) 0.1 mg IVPUSH SEECOMMENT PRN PRN Reason: Respiratory Depression Oxycodone HCl (Oxycodone) 5 mg PO Q6H PRN PRN Reason: Pain (severe 7-10) Last Admin: 04/21/20 20:23 Dose: 5 mg Documented by: Oxycodone HCl (Oxycodone) 10 mg PO Q6H PRN PRN Reason: Pain (severe 7-10) Prenat Multivit/[place]/Iron/Folic Ac ( Plus Iron) 1 each PO DAILY VI Last Admin: 04/21/20 08:58 Dose: 1 each Documented by: Discontinued Medications Bupivacaine HCl (Marcaine 0.5%) Confirm Administered Dose 30 ml .ROUTE .STK-MED ONE Stop: 04/20/20 06:40 Last Admin: 04/20/20 07:26 Dose: 20 ml Documented by: Cefazolin Sodium (Ancef) Confirm Administered Dose 2 gm .ROUTE .[facility] ONE Stop: 04/20/20 06:45 Citric Acid/Sodium Citrate (Bicitra Solution) 30 ml PO ONETIME ONE Stop: 04/20/20 06:01 Last Admin: 04/20/20 06:52 Dose: 30 ml Documented by: Citric Acid/Sodium Citrate (Bicitra Solution) Confirm Administered Dose 30 ml .ROUTE .[facility] ONE Stop: 04/20/20 06:51 Last Admin: 04/20/20 11:09 Dose: Not Given Documented by: Lactated Ringer's (Ringers, Lactated) 1,000 mls @ 125 mls/hr IV ASDIRECTED [facility] Last Admin: 04/20/20 06:08 Dose: 125 mls/hr Documented by: Cefazolin Sodium/Dextrose 2 gm (/ Premix) 50 mls @ 100 mls/hr IV ONETIME ONE Stop: 04/20/20 06:29 Last Admin: 04/20/20 11:09 Dose: Not Given Documented by: Oxytocin/Lactated Ringer's (Pitocin In Lr 10 Units/1,000 Ml) 10 unit in 1,000 mls @ 100 mls/hr IV ASDIRECTED [facility] Lactated Ringer's (Ringers, Lactated) Confirm Administered Dose 1,000 mls @ as directed .ROUTE .[facility] ONE Stop: 04/20/20 06:50 Dextrose/Lactated Ringer's (Dextrose 5%-Lactated Ringers) 1,000 mls @ 125 mls/hr IV ASDIRECTED [facility] Stop: 04/20/20 18:21 Last Admin: 04/20/20 11:15 Dose: 125 mls/hr Documented by: Ketorolac Tromethamine (Toradol) Confirm Administered Dose 30 mg .ROUTE .[facility] ONE Stop: 04/20/20 06:45 Ketorolac Tromethamine (Toradol) 30 mg IVPUSH Q6H [facility] Stop: 04/21/20 02:01 Last Admin: 04/21/20 02:11 Dose: 30 mg Documented by: Metoclopramide HCl (Reglan) 10 mg IVPUSH ONETIME ONE Stop: 04/20/20 06:01 Last Admin: 04/20/20 06:52 Dose: 10 mg Documented by: Metoclopramide HCl (Reglan) Confirm Administered Dose 10 mg .ROUTE .STK-MED ONE Stop: 04/20/20 06:50 Last Admin: 04/20/20 11:09 Dose: Not Given Documented by: Morphine Sulfate (Duramorph Pf) Confirm Administered Dose 10 mg .ROUTE .STK-MED ONE Stop: 04/20/20 06:45 Oxycodone/Acetaminophen (Percocet 325-5 Mg) 1 tab PO Q6H PRN PRN Reason: Pain (moderate 4-6) Last Admin: 04/21/20 10:07 Dose: 1 tab Documented by: Oxycodone/Acetaminophen (Percocet 325-5 Mg) 2 tab PO Q6H PRN PRN Reason: Pain (severe 7-10) Oxytocin (Pitocin) Confirm Administered Dose 10 unit .ROUTE .STK-MED ONE Stop: 04/20/20 06:45 Oxytocin (Pitocin) Confirm Administered Dose 10 unit .ROUTE .STK-MED ONE Stop: 04/20/20 07:55 Phenylephrine HCl (Sushil-Synephrine) Confirm Administered Dose 10 mg .ROUTE .STK- MED ONE Stop: 04/20/20 06:45 Sodium Chloride (Saline Flush) 10 ml FLUSH ASDIRECTED PRN PRN Reason: Keep Vein Open - Infant Interaction Infant Disposition, : in Room with Family Interaction: Holding Infant Infant Feeding: Attempted ; Nursed Fair/Poor Support Person: - Recovery Exam Fundal Tone: Firm Fundal Level: 1 Fingerbreadths Below Umbilicus Fundal Placement: Midline Lochia Amount: Scant, Small Lochia Color: Rubra/Red Perineum Description: Intact, Minimal Bruising/Swelling Bladder Status: Voiding Urinary Elimination: Voided - Exam General: Alert, Oriented, Cooperative Lungs: Clear to Auscultation, Normal Respiratory Effort Cardiovascular: Regular Rate, Regular Rhythm GI/Abdominal Exam: Soft, Non-Tender Extremities: Normal Inspection Skin: Warm, Dry, Intact Wound/Incisions: Healing Well, No Drainage - Problem List & Annotations (1) 37 weeks gestation of SNOMED Code(s): 57372420 Code(s): Z3A.37 - 37 WEEKS GESTATION OF Status: Acute Current Visit: No (2) Gestational hypertension SNOMED Code(s): 150577002 Code(s): O13.9 - GESTATIONAL HTN W/O SIGNIFICANT PROTEINURIA, UNSP TRIMESTER Status: Acute Current Visit: No (3) History of delivery SNOMED Code(s): 341837833 Code(s): Z98.891 - HISTORY OF UTERINE SCAR FROM PREVIOUS SURGERY Status: Acute Current Visit: No (4) delivery delivered SNOMED Code(s): 889601232 Code(s): O82 - ENCOUNTER FOR DELIVERY WITHOUT INDICATION Status: Acute Current Visit: Yes - Problem List Review Problem List Initiated/Reviewed/Updated: Yes - Assessment Assessment:: POD#2 - Plan Plan:: * Routine cares * Breast feeding * BP's mostly normal - one mild range BP documented. Will follow up with Dr. Huffman on discharge * Discharge home today
--- NOTE | 2020-04-22 01:01 | PCM.DCSUM1 ---
Discharge Summary - Discharge Data Discharge Date: 04/22/20 Discharge Disposition: Home, Self-Care 01 Condition: Good - Referral to Home Health Primary Care Physician: Benny Huffman MD - Patient Summary/Data Operative Procedure(s) Performed: Repeat section Complications: None Consults: None Recommended Follow-up Testing/Procedures: Follow up in 1-[address] Huffman Hospital Course: 29 y/o admitted at 37 0/7 wks for repeat in setting of gestational HTN. Surgery was uncomplicated. See delivery note. did well with mostly normal Bp's. Was discharged home on PPD#2 - Patient Instructions Diet: Regular Diet as Tolerated Activity: Apply Ice, As Tolerated, No Lifting Over 20 Pounds Activity, Other: Nothing in the vagina for 6 weeks. Driving: Do Not Drive (While taking narcotic medications are having significant pain.) Showering/Bathing: May Shower, No Tub Bathing/Swimming Wound/Incision Care: Keep Operative Site/Wound Site Clean and Dry Notify Provider of: Fever, Increased Pain, Swelling and Redness, Drainage, Nausea and/or Vomiting Other/Special Instructions: Please contact your physician's office if you note any bleeding or pus coming from the abdominal incision. Please contact your physician's office if you have heavy vaginal bleeding enough to soak a pad in less than an hour for several hours. Monitor for any signs of an infection in the breasts with severe pain or redness of the breast. - Discharge Plan *PRESCRIPTION DRUG MONITORING PROGRAM REVIEWED*: Yes *COPY OF PRESCRIPTION DRUG MONITORING REPORT IN PATIENT PAOLA: No Prescriptions/Med Rec: oxyCODONE 5 - 10 mg PO Q6H PRN #30 tablet PRN Reason: Pain Home Medications: Home Meds Vit 75/Iron/Folic/Om3 [One A Day Dha Pack] 1 tab PO DAILY 12/01/19 [History] Acetaminophen [Tylenol] 650 mg PO Q6H PRN tablet 04/21/20 [Rx] Docusate Sodium [Colace] 100 mg PO BID cap 04/21/20 [Rx] Ibuprofen [Motrin] 600 mg PO Q6H PRN tablet 04/21/20 [Rx] oxyCODONE 5 - 10 mg PO Q6H PRN #30 tablet 04/21/20 [Rx] Patient Handouts: Delivery, Care After Referrals: Benny Huffman MD [Primary Care Provider] - (Follow-up in 2 weeks for routine postoperative appointment or earlier as needed.) - Discharge Summary/Plan Comment DC Time >30 min.: No - Patient Data Vitals - Most Recent: Last Vital Signs Temp 36.9 C 04/21/20 22:05 Pulse 83 04/21/20 22:05 Resp 15 04/21/20 22:05 BP 140/83 04/21/20 22:05 Pulse Ox 97 04/21/20 22:05 Weight - Most Recent: 93.077 kg I&O - Last 24 hours: Intake & Output 04/21/20 04/21/20 04/22/20 14:59 22:59 06:59 Intake Total 840 Balance 840 Lab Results - Last 24 hrs: Laboratory Results - last 24 hr 04/21/20 Range/Units 06:05 WBC 11.15 H (3.98-10.04) K/mm3 RBC 3.91 L (3.98-5.22) M/mm3 Hgb 11.9 (11.2-15.7) gm/dl Hct 36.1 (34.1-44.9) % MCV 92.3 (79.4-94.8) fl MCH 30.4 (25.6-32.2) pg MCHC 33.0 (32.2-35.5) g/dl RDW Std Deviation 41.6 (36.4-46.3) fL Plt Count 168 L (182-369) K/mm3 MPV 9.4 (9.4-12.3) fl Neut % (Auto) 77.9 H (34.0-71.1) % Lymph % (Auto) 14.6 L (19.3-51.7) % Bowie % (Auto) 6.5 (4.7-12.5) % Eos % (Auto) 0.5 L (0.7-5.8) Baso % (Auto) 0.1 (0.1-1.2) % Neut # (Auto) 8.68 H (1.56-6.13) K/mm3 Lymph # (Auto) 1.63 (1.18-3.74) K/mm3 Bowie # (Auto) 0.73 H (0.24-0.36) K/mm3 Eos # (Auto) 0.06 (0.04-0.36) K/mm3 Baso # (Auto) 0.01 (0.01-0.08) K/mm3 Med Orders - Current: Current Medications Acetaminophen (Tylenol) 650 mg PO Q6H PRN PRN Reason: Pain (moderate 4-6) Last Admin: 04/21/20 17:37 Dose: 650 mg Documented by: Diphenhydramine HCl (Benadryl) 25 mg IVPUSH Q6H PRN PRN Reason: Itching or Nausea Docusate Sodium (Colace) 100 mg PO BID [facility] Last Admin: 04/21/20 20:20 Dose: 100 mg Documented by: Ephedrine Sulfate (Ephedrine Sulfate) 5 mg IVPUSH SEECOMMENT PRN PRN Reason: Other Oxytocin/Lactated Ringer's (Pitocin In Lr 10 Units/1,000 Ml) 10 unit in 1,000 mls @ 100 mls/hr IV .CONTINUOUS VI; Protocol Ibuprofen (Motrin) 600 mg PO Q6H PRN PRN Reason: mild pain or fever Last Admin: 04/21/20 20:19 Dose: 600 mg Documented by: Magnesium Hydroxide (Milk Of Magnesia) 30 ml PO BEDTIME PRN PRN Reason: Constipation Naloxone HCl (Narcan) 0.1 mg IVPUSH SEECOMMENT PRN PRN Reason: Respiratory Depression Oxycodone HCl (Oxycodone) 5 mg PO Q6H PRN PRN Reason: Pain (severe 7-10) Last Admin: 04/21/20 20:23 Dose: 5 mg Documented by: Oxycodone HCl (Oxycodone) 10 mg PO Q6H PRN PRN Reason: Pain (severe 7-10) Prenat Multivit/Section Maintainer/Iron/Folic Ac ( Plus Iron) 1 each PO DAILY [facility] Last Admin: 04/21/20 08:58 Dose: 1 each Documented by: Discontinued Medications Bupivacaine HCl (Marcaine 0.5%) Confirm Administered Dose 30 ml .ROUTE .STK-MED ONE Stop: 04/20/20 06:40 Last Admin: 04/20/20 07:26 Dose: 20 ml Documented by: Cefazolin Sodium (Ancef) Confirm Administered Dose 2 gm .ROUTE .STK-MED ONE Stop: 04/20/20 06:45 Citric Acid/Sodium Citrate (Bicitra Solution) 30 ml PO ONETIME ONE Stop: 04/20/20 06:01 Last Admin: 04/20/20 06:52 Dose: 30 ml Documented by: Citric Acid/Sodium Citrate (Bicitra Solution) Confirm Administered Dose 30 ml .ROUTE .STK-MED ONE Stop: 04/20/20 06:51 Last Admin: 04/20/20 11:09 Dose: Not Given Documented by: Lactated Ringer's (Ringers, Lactated) 1,000 mls @ 125 mls/hr IV ASDIRECTED [facility] Last Admin: 04/20/20 06:08 Dose: 125 mls/hr Documented by: Cefazolin Sodium/Dextrose 2 gm (/ Premix) 50 mls @ 100 mls/hr IV ONETIME ONE Stop: 04/20/20 06:29 Last Admin: 04/20/20 11:09 Dose: Not Given Documented by: Oxytocin/Lactated Ringer's (Pitocin In Lr 10 Units/1,000 Ml) 10 unit in 1,000 mls @ 100 mls/hr IV ASDIRECTED [facility] Lactated Ringer's (Ringers, Lactated) Confirm Administered Dose 1,000 mls @ as directed .ROUTE .K-MED ONE Stop: 04/20/20 06:50 Dextrose/Lactated Ringer's (Dextrose 5%-Lactated Ringers) 1,000 mls @ 125 mls/hr IV ASDIRECTED [facility] Stop: 04/20/20 18:21 Last Admin: 04/20/20 11:15 Dose: 125 mls/hr Documented by: Ketorolac Tromethamine (Toradol) Confirm Administered Dose 30 mg .ROUTE .STK-MED ONE Stop: 04/20/20 06:45 Ketorolac Tromethamine (Toradol) 30 mg IVPUSH Q6H [facility] Stop: 04/21/20 02:01 Last Admin: 04/21/20 02:11 Dose: 30 mg Documented by: Metoclopramide HCl (Reglan) 10 mg IVPUSH ONETIME ONE Stop: 04/20/20 06:01 Last Admin: 04/20/20 06:52 Dose: 10 mg Documented by: Metoclopramide HCl (Reglan) Confirm Administered Dose 10 mg .ROUTE .STK-MED ONE Stop: 04/20/20 06:50 Last Admin: 04/20/20 11:09 Dose: Not Given Documented by: Morphine Sulfate (Duramorph Pf) Confirm Administered Dose 10 mg .ROUTE .STK-MED ONE Stop: 04/20/20 06:45 Oxycodone/Acetaminophen (Percocet 325-5 Mg) 1 tab PO Q6H PRN PRN Reason: Pain (moderate 4-6) Last Admin: 04/21/20 10:07 Dose: 1 tab Documented by: Oxycodone/Acetaminophen (Percocet 325-5 Mg) 2 tab PO Q6H PRN PRN Reason: Pain (severe 7-10) Oxytocin (Pitocin) Confirm Administered Dose 10 unit .ROUTE .STK-MED ONE Stop: 04/20/20 06:45 Oxytocin (Pitocin) Confirm Administered Dose 10 unit .ROUTE .STK-MED ONE Stop: 04/20/20 07:55 Phenylephrine HCl (Sushil-Synephrine) Confirm Administered Dose 10 mg .ROUTE .STK- MED ONE Stop: 04/20/20 06:45 Sodium Chloride (Saline Flush) 10 ml FLUSH ASDIRECTED PRN PRN Reason: Keep Vein Open
[2020-04-22] MEDS: Acetaminophen 325 MG Tab PO PRN ×2 (01:35→07:34)
[2020-04-22] MEDS: oxyCODONE 5 MG Tab PO PRN ×2 (02:13→08:21)
[2020-04-22] MEDS: Ibuprofen 600 MG Tab PO PRN ×2 (02:13→11:31)
[2020-04-22] MEDS: Prenatal Multivitamin with Calcium/Folic Acid/Iron Tab PO SCH (08:21)
[2020-04-22] MEDS: Docusate Sodium 100 MG Cap PO SCH (08:22)
== END 2020-04-22 11:50 | disposition home or self-care (01) | DRG 540 ==
LOC: JD.OB 05:34
PROVIDERS: ADMIT Obstetrics & Gynecology; ATTEND Obstetrics & Gynecology
PROC: 10D00Z1 Extraction of Products of Conception, Low, Open Approach (ICD-10-PCS; principal; 2020-04-20)
DX: O13.4 Gestational [pregnancy-induced] hypertension without significant proteinuria, complicating childbirth (principal); O34.211 Maternal care for low transverse scar from previous cesarean delivery; O24.429 Gestational diabetes mellitus in childbirth, unspecified control; Z37.0 Single live birth; Z3A.37 37 weeks gestation of pregnancy; Z20.828 Contact with and (suspected) exposure to other viral communicable diseases
CPT/HCPCS: 01961; 36415; 59025; 85025; 86592; 86850; 86900; 86901; A9270-GY; J0690; J1885; J2270; J2370; J2590; J2765; J3490; J7120; J7121; U0002